=== PATIENT | female | born 1950 | race Caucasian/White ===

== ENCOUNTER 2016-05-15 17:28 | Inpatient (IN) | payer MEDICARE, OTHER ==
--- NOTE | 2016-05-15 17:40 | Emergency Department Record ---
History of Present Illness - General Chief complaint: Extremity Problem Stated complaint: RT LEG INJURY Time Seen by Provider: 05/15/16 17:39 Source: Patient Mode of Arrival: Ambulatory Limitations: No limitations - History of Present Illness Initial comments: The patient is here due to R leg pain for 3 days with swelling. She has a hx of DVT similar to this in the past. She denies any recent trauma, injury, CP, SOB but has been coughing a little worse recently. She has a hx of heavy tobacco use and has not seen a doctor in almost 10 years. MD Complaint: Extremity pain Onset/Timin -: Days(s) Location: Right, Lower Leg Severity scale (1-10): 7 Quality: Sharp Consistency: Constant Improves with: Nothing Worsens with: Nothing Associated Symptoms: Denies other symptoms - Related Data Home Medications Medication Instructions Recorded Confirmed Last Taken No Home Med [NO HOME MEDS] 05/15/16 05/15/16 Unknown Allergies Allergy/AdvReac Type Severity Reaction Status Date / Time ciprofloxacin Allergy HYPERSENSIT Verified 05/15/16 17:38 IVITY Travel Screening - Travel/Exposure Within Last 30 Days Have you traveled within the last 30 days?: No Review of Systems Constitutional: Denies: Chills, Fever Eyes: Denies: Eye discharge ENT: Denies: Congestion Respiratory: Reports: Cough. Denies: Dyspnea Cardiovascular: Denies: Chest pain Endocrine: Reports: Fatigue Gastrointestinal: Denies: Diarrhea, Vomiting Genitourinary: Denies: Dysuria Musculoskeletal: Denies: Back pain Skin: Denies: Bruising Past Medical History - SOCIAL HISTORY Smoking Status: Heavy tobacco smoker (>10/day) Alcohol Use: None Drug Use: None - RESPIRATORY Hx Respiratory Disorders: No - CARDIOVASCULAR Hx Cardio Disorders: Yes Hx Hypertension: Yes - NEURO Hx Neuro Disorders: No - GI Hx GI Disorders: No - Hx Genitourinary Disorders: No - ENDOCRINE Hx Endocrine Disorders: No - MUSCULOSKELETAL Hx Musculoskeletal Disorders: No - PSYCH Hx Psych Problems: No - HEMATOLOGY/ONCOLOGY Hx Hematology/Oncology Disorders: No Family Medical History Any Significant Family History?: No Physical Exam - General General Appearance: Alert, Oriented x3, Cooperative, No acute distress - Head Head exam: Atraumatic, Normocephalic, Normal inspection - Eye Eye exam: Normal appearance, PERRL - ENT Throat exam: Normal inspection. negative: Tonsillar erythema, Tonsillar exudate - Neck Neck exam: Normal inspection, Full ROM. negative: Lymphadenopathy, Meningismus , Tenderness - Respiratory Respiratory exam: Decreased breath sounds (R > L base.). negative: Normal lung sounds bilaterally, Prolonged expiratory, Rales, Wheezes - Cardiovascular Cardiovascular Exam: Regular rate, Normal rhythm, Normal heart sounds. negative : Diastolic murmur, Systolic murmur - GI/Abdominal GI/Abdominal exam: Soft, Normal bowel sounds. negative: Tenderness - Extremities Extremities exam: Calf tenderness (R only.), Pedal edema (R > L), Tenderness ( There is diffuse tenderness to the medial R thigh and calf.). negative: Normal inspection - Neurological Neurological exam: Alert, Normal gait, Oriented X3. negative: Abnormal gait, Motor sensory deficit Course Vital Signs 05/15/16 17:30 Temperature 99.2 F Pulse Rate 104 H Respiratory 22 Rate Blood Pressure 199/96 Pulse Ox 96 - Reevaluation(s) Reevaluation #1: The patient is presently still in xray obtaining her tests. Due to shift change her care will be turned over to Dr. Mejía. 05/15/16 18:41 Medical Decision Making - Lab Data Result diagrams: 05/15/16 17:45 05/15/16 17:45 Disposition Forms: Patient Portal Access
[2016-05-15 17:57] LABS: BASO % 0.2 % (0-6); EOS % 1.1 % (0-6); GRAN % 73.7 % (47-80); HEMATOCRIT 48.7 % (35.0-47.0); HEMOGLOBIN 15.9 gm/dl (11.6-16.0); LYMPH % 15.1 % (16-45); MEAN CELL VOLUME 94.2 fl (81-97); MEAN CORPUSCULAR HEMOGLOBIN 30.8 pg (27-33); MEAN CORPUSCULAR HGB CONC 32.6 g/dl (32-36); MEAN PLATELET VOLUME 9.1 fl (7.4-10.4); MONO % 9.9 % (0-9); PLATELET COUNT 225 K/uL (130-400); RED BLOOD COUNT 5.17 M/uL (3.80-5.40); RED CELL DISTRIBUTION WIDTH 13.3 % (11.5-14.5); WHITE BLOOD COUNT W/O DIFF 8.9 K/uL (4.2-12.2)
[2016-05-15 18:09] LABS: ALB/GLOB RATIO 1.1 (1.1-1.8); ALBUMIN 3.9 gm/dL (3.5-5.0); ALKALINE PHOSPHATASE 98 U/L (38-126); ALT/SGPT 24 U/L (9-52); ANION GAP 12.9 (7-16); AST/SGOT 14 U/L (14-36); BILIRUBIN,TOTAL 0.72 mg/dL (0.2-1.3); BLOOD UREA NITROGEN 12 mg/dL (7-17); CARBON DIOXIDE 27.1 mmol/L (22-30); CREATININE 0.8 mg/dL (0.52-1.04); EST GLOMERULAR FILTRATION RATE > 60 ml/min; GLUCOSE,RANDOM 117 mg/dL (70-110); TOTAL PROTEIN 7.3 gm/dL (6.3-8.2)
[2016-05-15 18:11] LABS: INR 0.97; PARTIAL THROMBOPLASTIN TIME 27.8 SECONDS (24.5-39.1)
[2016-05-15] MEDS ORDERED: HEPARIN SODIUM 1000 UNIT/1 ML 10ML VIAL IVP ONE (19:38)
[2016-05-15] MEDS ORDERED: HEPARIN SODIUM/D5W 25,000 UNITS in DEXTROSE 5 % IN WATER 1 BAG IV SCH ×8 (19:45→20:53)
--- NOTE | 2016-05-15 19:47 | Emergency Department Record ---
History of Present Illness - General Chief complaint: Extremity Problem Stated complaint: RT LEG INJURY Time Seen by Provider: 05/15/16 17:39 Source: Patient Mode of Arrival: Ambulatory Limitations: No limitations - History of Present Illness Onset/Timin -: Days(s) Location: Right, Lower Leg Severity scale (1-10): 7 Quality: Sharp Consistency: Constant Improves with: Nothing Worsens with: Nothing Associated Symptoms: Denies other symptoms - Related Data Home Medications Medication Instructions Recorded Confirmed Last Taken No Home Med [NO HOME MEDS] 05/15/16 05/15/16 Unknown Allergies Allergy/AdvReac Type Severity Reaction Status Date / Time ciprofloxacin Allergy HYPERSENSIT Verified 05/15/16 17:38 IVITY Travel Screening - Travel/Exposure Within Last 30 Days Have you traveled within the last 30 days?: No Review of Systems Constitutional: Denies: Chills, Fever Eyes: Denies: Eye discharge ENT: Denies: Congestion Respiratory: Reports: Cough. Denies: Dyspnea Cardiovascular: Denies: Chest pain Endocrine: Reports: Fatigue Gastrointestinal: Denies: Diarrhea, Vomiting Genitourinary: Denies: Dysuria Musculoskeletal: Denies: Back pain Skin: Denies: Bruising Past Medical History - SOCIAL HISTORY Smoking Status: Heavy tobacco smoker (>10/day) Alcohol Use: None Drug Use: None - RESPIRATORY Hx Respiratory Disorders: No - CARDIOVASCULAR Hx Cardio Disorders: Yes Hx Hypertension: Yes - NEURO Hx Neuro Disorders: No - GI Hx GI Disorders: No - Hx Genitourinary Disorders: No - ENDOCRINE Hx Endocrine Disorders: No - MUSCULOSKELETAL Hx Musculoskeletal Disorders: No - PSYCH Hx Psych Problems: No - HEMATOLOGY/ONCOLOGY Hx Hematology/Oncology Disorders: No Family Medical History Any Significant Family History?: No Physical Exam - General Limitations: No limitations Course Vital Signs 05/15/16 17:30 Temperature 99.2 F Pulse Rate 104 H Respiratory 22 Rate Blood Pressure 199/96 Pulse Ox 96 Medical Decision Making - Lab Data Result diagrams: 05/15/16 17:45 05/15/16 17:45 Lab Results 05/15/16 05/15/16 05/15/16 Range/Units 17:45 17:45 17:45 WBC 8.9 (4.2-12.2) K/uL RBC 5.17 (3.80-5.40) M/uL Hgb 15.9 (11.6-16.0) gm/dl Hct 48.7 H (35.0-47.0) % MCV 94.2 (81-97) fl MCH 30.8 (27-33) pg MCHC 32.6 (32-36) g/dl RDW 13.3 (11.5-14.5) % Plt Count 225 (130-400) K/uL MPV 9.1 (7.4-10.4) fl Gran % 73.7 (47-80) % Lymphocytes % 15.1 L (16-45) % Monocytes % 9.9 H (0-9) % Eosinophils % 1.1 (0-6) % Basophils % 0.2 (0-6) % PT 11.0 (9.5-12.1) SECONDS INR 0.97 PTT 27.80 (24.5-39.1) SECONDS Sodium 139 (136-145) mmol/L Potassium 3.7 (3.5-5.1) mmol/L Chloride 99 (98-107) mmol/L Carbon Dioxide 27.1 (22-30) mmol/L Anion Gap 12.9 (7-16) BUN 12 (7-17) mg/dL Creatinine 0.8 (0.52-1.04) mg/dL Estimated GFR > 60 ml/min Random Glucose 117 H (70-110) mg/dL Calcium 8.7 (8.5-10.1) mg/dL Total Bilirubin 0.72 (0.2-1.3) mg/dL AST 14 (14-36) U/L ALT 24 (9-52) U/L Alkaline Phosphatase 98 (38-126) U/L Total Protein 7.3 (6.3-8.2) gm/dL Albumin 3.9 (3.5-5.0) gm/dL Globulin 3.4 (1.4-4.8) gm/dL Albumin/Globulin Ratio 1.1 (1.1-1.8) Disposition Clinical Impression: Lung mass DVT (deep venous thrombosis) Qualifiers: DVT location: lower extremity Affected thrombotic vein of extremity: femoral Laterality: right Chronicity: acute Qualified Code(s): I82.411 - Acute embolism and thrombosis of right femoral vein Disposition: Still a Patient at [facility] Decision to Admit: Admit from ER Decision to Admit Date: 02/02/17 Decision to Admit Time: 19:48 Forms: Patient Portal Access
[2016-05-15] MEDS ORDERED: PNEUM 13-VAL/PF 0.5 ML IM ONE (21:20)
[2016-05-15] MEDS ORDERED: NICOTINE14 MG/24 HOUR PATCH TD SCH (22:00)
[2016-05-15] MEDS ORDERED: NICOTINE14 MG/24 HOUR PATCH TD ONE (22:00)
[2016-05-15] MEDS: ACETAMINOPHEN 500 MG TABLET PO PRN (22:12)
[2016-05-16] MEDS ORDERED: HEPARIN SODIUM 1000 UNIT/1 ML 10ML VIAL IVP ONE ×2 (01:16→06:44)
[2016-05-16] MEDS: ACETAMINOPHEN 500 MG TABLET PO PRN (06:07)
--- NOTE | 2016-05-16 07:20 | RADIOLOGY REPORT ---
EXAM: CHEST, TWO VIEWS HISTORY: COUGH. TECHNIQUE: PA and lateral views of the chest were obtained. Comparison: None. FINDINGS: The heart size is within normal limits. There is an approximately 2.7 cm nodule/mass right mid lung laterally. This is probably in the superior segment of the right lower lobe faintly visualized posteriorly on the lateral view. This is nonspecific. Malignancy cannot be excluded. Recommend comparison with old films for initial further evaluation and depending on this, follow-up chest CT may be warranted. No pleural effusion or pneumothorax evident. Prominent spurring in the spine. IMPRESSION: 1. NO ACUTE INFILTRATE EVIDENT. 2. 2.7 CM NODULE/MASS RIGHT MID LUNG LATERALLY. RECOMMEND COMPARISON WITH OLD FILMS FOR INITIAL FURTHER EVALUATION. 3. SPURRING IN THE SPINE. JOB NUMBER: [id number] MTDD
--- NOTE | 2016-05-16 07:26 | US VENOUS DOPPLER REPORT ---
EXAM: VENOUS DOPPLER ULTRASOUND OF THE RIGHT LOWER EXTREMITY HISTORY: RIGHT LEG PAIN AND SWELLING, POSSIBLE DVT. TECHNIQUE: Venous Duplex sonography was performed of the right lower extremity from the inguinal region down into the calf. Color flow and spectral analysis was utilized. Comparison: None. FINDINGS: The common femoral vein and greater saphenous vein both appear patent demonstrating flow of color flow and also compressibility and flow augmentation, however, the superficial femoral vein throughout the thigh as well as the popliteal vein demonstrates no appreciable color flow and was noncompressible. Findings are consistent with extensive thrombus in the superficial and popliteal veins. 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 IMPRESSION: APPEARANCE CONSISTENT WITH EXTENSIVE DVT IN THE RIGHT SUPERFICIAL FEMORAL VEIN AND POPLITEAL VEIN. VENOUS ANATOMY OF THE CALF WAS NOT CLEARLY DELINEATED. JOB NUMBER: [id number] MTDD
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
[2016-05-16] MEDS ORDERED: APIXABAN 5MG TABLET PO SCH (11:45)
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
[2016-05-16] MEDS ORDERED: NICOTINE14 MG/24 HOUR PATCH TD SCH (22:00)
== END 2016-05-16 13:45 | disposition home or self-care (01) | DRG 301 ==
LOC: ER 17:28 → MEDSURG 20:34
PROVIDERS: ADMIT Family Medicine; ATTEND Family Medicine
DX: I82.411 Acute embolism and thrombosis of right femoral vein (principal); R91.8 Other nonspecific abnormal finding of lung field; Z66 Do not resuscitate; F17.200 Nicotine dependence, unspecified, uncomplicated
CPT/HCPCS: 71020; 80053; 85025; 85610; 85730; 90670; 96365; 96375; 99223; 99285

== ENCOUNTER 2016-12-20 06:34 | Emergency (ER) | payer MEDICARE, OTHER ==
[2016-12-20] MEDS ORDERED: LIDOCAINE VISC 2% 200MG/10ML UD MM ONE (07:23)
[2016-12-20 07:28] LABS: BASO % 0.3 % (0-6); EOS % 6.3 % (0-6); GRAN % 58.9 % (47-80); HEMOGLOBIN 9.6 gm/dl (11.6-16.0); MEAN CELL VOLUME 98.4 fl (81-97); MEAN PLATELET VOLUME 9.8 fl (7.4-10.4); MONO % 8.5 % (0-9); PLATELET COUNT 235 K/uL (130-400); RED BLOOD COUNT 3.05 M/uL (3.80-5.40); RED CELL DISTRIBUTION WIDTH 14.1 % (11.5-14.5); WHITE BLOOD COUNT W/O DIFF 6.2 K/uL (4.2-12.2)
[2016-12-20 07:31] LABS: MEAN CORPUSCULAR HEMOGLOBIN 31.4 pg (27-33)
--- NOTE | 2016-12-20 07:40 | Emergency Department Record ---
History of Present Illness - General Chief complaint: Nosebleed/epistaxis Stated complaint: BLOODY NOSE Time Seen by Provider: 12/20/16 07:10 Source: Patient Mode of Arrival: Ambulatory Limitations: No limitations - History of Present Illness Initial comments: pt had brief episode of epistaxis that has resolved. she is on coumadin and had been told to get checked out if this happens. MD complaint: Epistaxis Onset/Timin -: Hour(s) Consistency: Now resolved Improves with: Pressure Context-Epistaxis: Recent surgery/procedure, Warfarin use - Related Data Home Medications Medication Instructions Recorded Confirmed Last Taken Aspirin [Aspirin EC] 81 mg PO DAILY 12/20/16 12/20/16 Unknown Clopidogrel Bisulfate [Plavix] 75 mg PO DAILY 12/20/16 12/20/16 Unknown Hydrocodone/Acetaminophen [[place] 1 tab PO Q6H PRN 12/20/16 12/20/16 Unknown 5mg/325mg] Lisinopril [Zestril] 5 mg PO DAILY 12/20/16 12/20/16 Unknown Metoprolol Tartrate [Lopressor] 25 mg PO Q12H 12/20/16 12/20/16 Unknown Allergies Allergy/AdvReac Type Severity Reaction Status Date / Time ciprofloxacin Allergy HYPERSENSIT Unverified 09/25/16 09:43 IVITY Travel Screening - Travel/Exposure Within Last 30 Days Have you traveled within the last 30 days?: No - Travel Symptoms Symptom Screening: Bleeding Review of Systems Reviewed: No additional complaints except as noted below Constitutional: Reports: As per HPI. Denies: Chills, Fever, Malaise, Night sweats, Weakness, Weight change Eyes: Reports: As per HPI. Denies: Eye discharge, Eye pain, Photophobia, Vision change ENT: Reports: As per HPI. Denies: Congestion, Dental pain, Ear pain, Epistaxis , Hearing loss, Throat pain Respiratory: Reports: As per HPI. Denies: Cough, Dyspnea, Hemoptysis, Stridor, Wheezes Cardiovascular: Reports: As per HPI. Denies: Arrhythmia, Chest pain, Dyspnea on exertion, Edema, Murmurs, Orthopnea, Palpitations, Paroxysmal nocturnal dyspnea, Rheumatic Fever, Syncope Endocrine: Reports: As per HPI. Denies: Fatigue, Heat or cold intolerance, Polydipsia, Polyuria Gastrointestinal: Reports: As per HPI. Denies: Abdominal pain, Constipation, Diarrhea, Hematemesis, Hematochezia, Melena, Nausea, Vomiting Genitourinary: Reports: As per HPI. Denies: Abnormal menses, Discharge, Dyspareunia, Dysuria, Frequency, Hematuria, Incontinence, Retention, Urgency Musculoskeletal: Reports: As per HPI. Denies: Arthralgia, Back pain, Gout, Joint swelling, Myalgia, Neck pain Skin: Reports: As per HPI. Denies: Bruising, Change in color, Change in hair/ nails, Lesions, Pruritus, Rash Neurological: Reports: As per HPI. Denies: Abnormal gait, Confusion, Headache, Numbness, Paresthesias, Seizure, Tingling, Tremors, Vertigo, Weakness Psychiatric: Reports: As per HPI. Denies: Anxiety, Auditory hallucinations, Depression, Homicidal thoughts, Suicidal thoughts, Visual hallucinations Hematological/Lymphatic: Reports: As per HPI. Denies: Anemia, Blood Clots, Easy bleeding, Easy bruising, Swollen glands Past Medical History - SOCIAL HISTORY Smoking Status: Former smoker Alcohol Use: None Drug Use: None - RESPIRATORY Hx Respiratory Disorders: Yes Hx COPD: Yes - CARDIOVASCULAR Hx Cardio Disorders: Yes Hx Cardiac Cath: Yes Hx Hypertension: Yes - NEURO Hx Neuro Disorders: No - GI Hx GI Disorders: No - Hx Genitourinary Disorders: Yes Hx Bladder Problem: Yes (urgency) - ENDOCRINE Hx Endocrine Disorders: No - MUSCULOSKELETAL Hx Musculoskeletal Disorders: No - PSYCH Hx Psych Problems: No - HEMATOLOGY/ONCOLOGY Hx Hematology/Oncology Disorders: Yes Hx Anemia: Yes (D&C) Family Medical History Any Significant Family History?: Yes Hx Cancer: Father, Mother, Brother/Sister Hx Heart Disease: Brother/Sister Physical Exam - General General Appearance: Alert, Oriented x3, Cooperative, No acute distress - Head Head exam: Normal inspection - Eye Eye exam: Normal appearance, PERRL, EOMI Pupils: Normal accommodation - ENT ENT exam: Normal exam, Mucous membranes moist, Normal external ear exam, Normal orophraynx, TM's normal bilaterally Ear exam: Normal external inspection. negative: External canal tenderness Nasal Exam: Normal inspection, Dried blood (on kisselbachs plexus). negative: Discharge, Sinus tenderness Mouth exam: Normal external inspection, Tongue normal Teeth exam: Normal inspection. negative: Dental caries Throat exam: Normal inspection. negative: Tonsillar erythema, Tonsillar exudate - Neck Neck exam: Normal inspection, Full ROM. negative: Tenderness - Respiratory Respiratory exam: Normal lung sounds bilaterally. negative: Respiratory distress - Cardiovascular Cardiovascular Exam: Regular rate, Normal rhythm, Normal heart sounds - GI/Abdominal GI/Abdominal exam: Soft, Normal bowel sounds. negative: Tenderness - Rectal Rectal exam: Deferred - exam: Deferred - Extremities Extremities exam: Normal inspection, Full ROM, Normal capillary refill. negative: Tenderness - Back Back exam: Reports: Normal inspection, Full ROM. Denies: Muscle spasm, Rash noted, Tenderness - Neurological Neurological exam: Alert, CN II-XII intact, Normal gait, Oriented X3 - Psychiatric Psychiatric exam: Normal affect, Normal mood - Skin Skin exam: Dry, Intact, Normal color, Warm Course Vital Signs 12/20/16 06:39 Temperature 98.6 F Pulse Rate [ 63 Pulse Ox Probe] Respiratory 20 Rate Blood Pressure 172/79 [Left Arm] Pulse Ox 97 - Reevaluation(s) Reevaluation #1: 12/20/16 08:38 viscous lido was used then silver nitrate to kisselbachs plexus. Medical Decision Making - Lab Data Result diagrams: 12/20/16 07:06 Lab Results 12/20/16 Range/Units 07:06 WBC 6.2 (4.2-12.2) K/uL RBC 3.05 L (3.80-5.40) M/uL Hgb 9.6 L (11.6-16.0) gm/dl Hct 30.0 L (35.0-47.0) % MCV 98.4 H (81-97) fl MCH 31.4 (27-33) pg MCHC 32.0 (32-36) g/dl RDW 14.1 (11.5-14.5) % Plt Count 235 (130-400) K/uL MPV 9.8 (7.4-10.4) fl Gran % 58.9 (47-80) % Lymphocytes % 26.0 (16-45) % Monocytes % 8.5 (0-9) % Eosinophils % 6.3 H (0-6) % Basophils % 0.3 (0-6) % Disposition Disposition: Discharge Clinical Impression: Epistaxis Coumadin toxicity Qualifiers: Encounter type: initial encounter Injury intent: accidental or unintentional Qualified Code(s): T45.511A - Poisoning by anticoagulants, accidental ( unintentional), initial encounter Disposition: Home, Self-Care Condition: (1) Good Instructions: Nosebleed (ED), Warfarin (By mouth) Additional Instructions: skip 1 dose of coumadin. no blowing nose. follow up with family doctor. return sooner if worse Forms: Patient Portal Access Quality - Quality Measures Quality Measures: N/A - Blood Pressure Screening Does Patient Have Any of the Following: No Blood Pressure Classification: Hypertensive Reading Systolic Measurement: 172 Diastolic Measurement: 79 Screening for High Blood Pressure: < First Hypertensive BP, F/U Documented > [ [id number]] First Hypertensive Follow-up Interventions: Follow-up with rescreen GT 1 day and LT 4 weeks.
[2016-12-20 08:13] LABS: INR 4.15
[2016-12-20 08:16] LABS: PROTHROMBIN TIME (PATIENT) 45.5 SECONDS (9.5-12.1)
== END 2016-12-20 09:00 | disposition home or self-care (01) ==
LOC: ER 06:34
DX: R04.0 Epistaxis (principal); D68.32 Hemorrhagic disorder due to extrinsic circulating anticoagulants; T45.515A Adverse effect of anticoagulants, initial encounter; Z79.01 Long term (current) use of anticoagulants
CPT/HCPCS: 30901; 85025; 85610; 99283